=== PATIENT | male | born 1975 | race Caucasian/White ===

== ENCOUNTER 2022-01-17 06:44 | Day surgery (SDC) | payer BC, OTHER ==
[2022-01-17] MEDS: Lactated Ringers 1,000 ML IV SCH (07:12)
[2022-01-17] MEDS ORDERED: Propofol 200 MG/20 ML SDV ONE (08:29)
[2022-01-17] MEDS ORDERED: fentaNYL 100 MCG/2 ML SDV ONE (08:29)
[2022-01-17] MEDS ORDERED: Midazolam 1 MG/ML 2 ML SDV ONE (08:40)
== END 2022-01-17 10:00 | disposition home or self-care (01) ==
LOC: VM.SDS 06:44
PROVIDERS: ATTEND Student in an Organized Health Care Education/Training Program
DX: Z12.11 Encounter for screening for malignant neoplasm of colon (principal); D12.2 Benign neoplasm of ascending colon; E03.9 Hypothyroidism, unspecified; G47.33 Obstructive sleep apnea (adult) (pediatric); R21 Rash and other nonspecific skin eruption; Z79.899 Other long term (current) drug therapy; Z79.890 Hormone replacement therapy
CPT/HCPCS: 00811; J2250; J2704; J3010; J7120